=== PATIENT | male | born 1965 | race Caucasian/White ===

== ENCOUNTER 2017-02-13 10:59 | Emergency (ER) | payer BC, OTHER ==
[~2017-02-13] VITALS: Ht 182.9 cm; Wt 90.7 kg
[2017-02-13] MEDS ORDERED: ASPIR 8181 MG PO (12:07)
[2017-02-13] MEDS ORDERED: NEXIUM40 MG PO (12:08)
[2017-02-13] MEDS ORDERED: CERTAVITE SR-AN1 TAB PO (12:09)
[2017-02-13] MEDS ORDERED: MOBIC15 MG PO (12:09)
== END 2017-02-13 12:00 | disposition short-term general hospital (02) ==
LOC: ER 10:59
PROC: 0HQFXZZ Repair Right Hand Skin, External Approach (ICD-10-PCS; principal; 2017-02-13)
DX: S61.411A Laceration without foreign body of right hand, initial encounter (principal); K21.9 Gastro-esophageal reflux disease without esophagitis; Z79.899 Other long term (current) drug therapy; Z88.5 Allergy status to narcotic agent; W23.1XXA Caught, crushed, jammed, or pinched between stationary objects, initial encounter